=== PATIENT | female | born 1975 | race Caucasian/White ===

== ENCOUNTER → 2017-08-30 | Outpatient (CLI) | payer BC ==
[~2017-08-30] MED LIST: LOSA50TA6 PO; TEST100V2 IM
[2017-08-30 15:21] LABS: BASOPHILS # (AUTO) 0.03 x10^3/uL (0-0.1); BASOPHILS % (AUTO) 1 % (0-1); EOSINOPHILS # (AUTO) 0.15 x10^3/uL (0-0.4); EOSINOPHILS % (AUTO) 3 % (1-7); LYMPHOCYTES # (AUTO) 1.81 x10^3/uL (1-3.4); LYMPHOCYTES % (AUTO) 33 % (22-44); MD NO; MEAN CORPUSCULAR HEMOGLOBIN 31.4 pg (27.0-34.8); MEAN CORPUSCULAR VOLUME 89.8 fL (80-100); MEAN PLATELET VOLUME 8.6 fL (7.4-10.4); MONOCYTES # (AUTO) 0.34 x10^3/uL (0.2-0.8); MONOCYTES % (AUTO) 6 % (2-9); NEUTROPHILS # (AUTO) 3.17 x10^3/uL (1.8-6.8); NEUTROPHILS % (AUTO) 58 % (42-75); PLATELET COUNT 220 x10^3/uL (130-400); RED BLOOD COUNT 5.06 x10^6/uL (3.82-5.3); RED CELL DISTRIBUTION WIDTH 13.4 % (9.6-15.2)
[2017-08-30 15:29] LABS: INTERNATIONAL NORMALIZED RATIO 1.02 (0.93-1.1); PROTHROMBIN TIME 10.5 Seconds (9.6-11.5)
[2017-08-30 15:36] LABS: ALBUMIN 3.7 g/dL (3.4-5.0); CHLORIDE 108 mmol/L (98-107)
[2017-08-30 15:49] LABS: ALANINE AMINOTRANSFERASE 28 U/L (12-78); ALKALINE PHOSPHATASE 121 U/L (45-117); ANION GAP 10 mmol/L (5-15); BILIRUBIN,TOTAL 1.1 mg/dL (0.2-1.0); CALCIUM 8.7 mg/dL (8.5-10.1); CREATININE 0.94 mg/dL (0.55-1.02); TOTAL PROTEIN 7.4 g/dL (6.4-8.2)
== END | disposition home or self-care (01) ==
LOC: EDSEX → STAR 14:09
PROVIDERS: ATTEND Specialist
DX: Z01.818 Encounter for other preprocedural examination (principal); C53.9 Malignant neoplasm of cervix uteri, unspecified; I49.8 Other specified cardiac arrhythmias
CPT/HCPCS: 36415; 80053; 84703; 85025; 85610; 85730; 93005

== ENCOUNTER 2017-09-04 09:10 | Inpatient (IN) | payer BC ==
[~2017-09-04] VITALS: Ht 175.3 cm; Wt 122.0 kg
[~2017-09-04 09:10] MED LIST changes: +BUPIVACAINE/PF 0.25% ONE; +EPINEPHRINE 1 MG/ML, 1ML ONE; +HEPARIN 1,000 UNITS/ML, 10ML ONE
[2017-09-04] MEDS ORDERED: LACTATED RINGERS 1,000 ML IV SCH (09:48)
[2017-09-04] MEDS ORDERED: FENTANYL PF 250 MCG/5ML ONE ×2 (15:26→17:04)
[2017-09-04] MEDS ORDERED: MIDAZOLAM 1 MG/ML, 2ML ONE (15:26)
[2017-09-04] MEDS ORDERED: PROPOFOL 10 MG/ML, 20ML ONE (15:27)
[2017-09-04] MEDS ORDERED: LIDOCAINE-MPF 2% ,5ML ONE (15:27)
[2017-09-04] MEDS ORDERED: EPINEPHRINE 1 MG/ML, 1ML ONE (16:06)
[2017-09-04] MEDS ORDERED: ACETAMINOPHEN 500 MG TABLET ONE ×2 (16:08)
[2017-09-04] MEDS ORDERED: OxyconTIN ER 20 MG TAB.ER ONE ×2 (16:08)
[2017-09-04] MEDS ORDERED: SCOPOLAMINE PATCH, 1.5MG PATCH.TD72 TD ONE ×2 (16:08→16:09)
[2017-09-04] MEDS ORDERED: ONDANSETRON ODT 8 MG ONE ×2 (16:08)
[2017-09-04] MEDS ORDERED: GABAPENTIN 300 MG CAPSULE ONE ×2 (16:08→16:09)
[2017-09-04] MEDS ORDERED: DEXAMETHASONE 4 MG/ML, 1ML ONE ×3 (16:20→16:37)
[2017-09-04] MEDS ORDERED: PHENYLEPHRINE 10 MG/ML ONE (16:25)
[2017-09-04] MEDS ORDERED: CEFOTETAN 2 GM ONE (16:25)
[2017-09-04] MEDS ORDERED: ROCURONIUM 10MG/ML,5ML ONE ×3 (17:03→19:09)
[2017-09-04] MEDS ORDERED: FENTANYL PF 100 MCG/2ML ONE ×2 (19:10→19:59)
[2017-09-04] MEDS ORDERED: HALOPERIDOL 5 MG/ML ONE (19:42)
[2017-09-04] MEDS ORDERED: OXYcodone 5 MG/5 ML ORAL.SOL UDC ONE (19:59)
[2017-09-04] MEDS ORDERED: ACETAMINOPHEN 650 MG/20.3 ML UDC ONE (19:59)
[2017-09-04] MEDS ORDERED: OXYcodone 5 MG/5 ML ORAL.SOL UDC PO PRN (20:00)
[2017-09-04] MEDS ORDERED: LABETALOL 5MG/ML, 20ML IV PRN (20:00)
[2017-09-04] MEDS ORDERED: hydrALAzine 20 MG/ML, 1ML IV PRN (20:00)
[2017-09-04] MEDS ORDERED: MEPERIDINE/PF 25MG/0.5ML IVPush PRN (20:00)
[2017-09-04] MEDS ORDERED: morphine SULFATE 10 MG/ML, 1ML IV PRN (20:00)
[2017-09-04] MEDS ORDERED: MORPHINE SULFATE 4 MG/ML, 1ML IVPush PRN (20:00)
[2017-09-04] MEDS ORDERED: ACETAMINOPHEN 325 MG TABLET PO PRN (20:00)
[2017-09-04] MEDS ORDERED: METOCLOPRAMIDE 5 MG/ML, 2ML IV PRN (20:00)
[2017-09-04] MEDS ORDERED: ONDANSETRON 2MG/ML, 2ML IVPush PRN (20:00)
[2017-09-04] MEDS ORDERED: LORazepam 2 MG/ML, 1ML IVPush PRN (20:00)
[2017-09-04] MEDS ORDERED: PROMETHAZINE 25 MG/ML, 1ML IV PRN (20:00)
[2017-09-04] MEDS: FENTANYL PF 100 MCG/2ML IV PRN ×2 (20:03→20:24)
[2017-09-04] MEDS: SODIUM CHLORIDE 0.9% 1,000 ML IV SCH (22:29)
[2017-09-04] MEDS: KETOROLAC 30 MG/1 ML IVPush SCH (22:29)
[2017-09-05] MEDS: OXYcodone/APAP 5/325MG TABLET PO PRN ×3 (00:01→12:46)
[2017-09-05] MEDS: SODIUM CHLORIDE 0.9% 1,000 ML IV SCH ×3 (02:12→07:46)
[2017-09-05 02:15] VITALS: BP 146/74
[2017-09-05] MEDS: KETOROLAC 30 MG/1 ML IVPush SCH ×2 (05:03→12:33)
[2017-09-05 05:14] LABS: BASOPHILS % (AUTO) 0 % (0-1); EOSINOPHILS % (AUTO) 0 % (1-7); LYMPHOCYTES # (AUTO) 1.08 x10^3/uL (1-3.4); LYMPHOCYTES % (AUTO) 10 % (22-44); MD NO; MEAN CORPUSCULAR HEMOGLOBIN 31.2 pg (27.0-34.8); MEAN CORPUSCULAR HGB CONC 34.4 g/dL (32.4-35.8); MEAN CORPUSCULAR VOLUME 90.6 fL (80-100); MEAN PLATELET VOLUME 8.9 fL (7.4-10.4); MONOCYTES # (AUTO) 0.65 x10^3/uL (0.2-0.8); MONOCYTES % (AUTO) 6 % (2-9); NEUTROPHILS # (AUTO) 9.65 x10^3/uL (1.8-6.8); NEUTROPHILS % (AUTO) 85 % (42-75); PLATELET COUNT 259 x10^3/uL (130-400); RED CELL DISTRIBUTION WIDTH 13.7 % (9.6-15.2)
[2017-09-05 05:27] LABS: CHLORIDE 106 mmol/L (98-107)
[2017-09-05 05:33] LABS: ANION GAP 9 mmol/L (5-15); CREATININE 1.14 mg/dL (0.55-1.02)
[2017-09-05 08:19] VITALS: BP 121/75
[2017-09-05] MEDS ORDERED: SODIUM CHLORIDE 0.9% 1,000 ML IV SCH (09:00)
[2017-09-05] MEDS ORDERED: FUROSEMIDE 20 MG/2 ML IV ONE (09:00)
[2017-09-05] MEDS ORDERED: OXYC-306 PO (10:05)
[2017-09-05] MEDS ORDERED: ONDA4TAB7 PO (10:06)
[2017-09-05 13:20] VITALS: BP 115/74
[2017-09-05 17:17] VITALS: BP 129/80
== END 2017-09-05 17:50 | disposition home or self-care (01) | DRG 741 ==
LOC: OUT 09:10 → EDSEX 09:10 → EDSTATUS 12:30 → 4NOR 19:59 → OUT 21:35
PROVIDERS: ADMIT Specialist; ATTEND Specialist
PROC: 0UT27ZZ Resection of Bilateral Ovaries, Via Natural or Artificial Opening (ICD-10-PCS; 2017-09-04)
PROC: 0UT77ZZ Resection of Bilateral Fallopian Tubes, Via Natural or Artificial Opening (ICD-10-PCS; 2017-09-04)
PROC: 0T788DZ Dilation of Bilateral Ureters with Intraluminal Device, Via Natural or Artificial Opening Endoscopic (ICD-10-PCS; 2017-09-04)
PROC: 8E0W7CZ Robotic Assisted Procedure of Trunk Region, Via Natural or Artificial Opening (ICD-10-PCS; 2017-09-04)
PROC: 0UT97ZZ Resection of Uterus, Via Natural or Artificial Opening (ICD-10-PCS; principal; 2017-09-04 12:00)
DX: C53.9 Malignant neoplasm of cervix uteri, unspecified (principal); F64.9 Gender identity disorder, unspecified; I10 Essential (primary) hypertension; Z90.710 Acquired absence of both cervix and uterus
CPT/HCPCS: 36415; 80048; 85025; 86850; 86900; 86923; 88305; 88309; J0171; J1100; J1644; J1885; J2250; J2704; J3010; J3490; Q0162; C2617; J1940; J2370; J7030; J7120; S0074